=== PATIENT | female | born 2000 | race Caucasian/White ===

== ENCOUNTER 2020-03-04 14:09 | Observation (INO) | payer BC ==
[2020-03-04] MEDS ORDERED: SODIUM CHLORIDE 0.9% 1,000 ML IV STA (15:27)
--- NOTE | 2020-03-04 15:33 | ED ---
Neuro HPI <Benigno Hargrove - Last Filed: 03/04/20 16:39> - General Source: patient, RN notes reviewed, old records reviewed Mode of arrival: ambulatory Limitations: no limitations - History of Present Illness Is the patient presenting with stroke symptoms?: Yes Last Known Well Date: 03/04/20 Last Known Well Time: 12:59 Onset/Timin <Rin Fink - Last Filed: 03/04/20 16:55> - General Chief Complaint: Neuro Symptoms/Deficit Stated Complaint: R Arm Numbness Time Seen by Provider: 03/04/20 15:13 - History of Present Illness Initial Comments: 19-year-old female presents returns today with complaints of right arm weakness, mild headache and episode of blurred vision and reported slurred speech that started at 1:00 she was getting ready for work. Patient reports she called her boyfriend and her to the ER. Patient states she has mild headache at this time. She reports that her visual is improved. She states that she has main complaint of weakness in the right arm and tingling sensation. Patient states that she has no chest pain or shortness of breath. Denies palpitations. She does report feeling history of MS and brain tumors. She states that she's had no previous neurological her past medical history. (Rin Fink) - Related Data Allergies/Adverse Reactions: Allergies Allergy/AdvReac Type Severity Reaction Status Date / Time Sulfa (Sulfonamide Allergy Rash/Hives Verified 03/04/20 14:24 Antibiotics) topiramate [From Topamax] AdvReac Unknown Verified 03/04/20 14:24 Review of Systems ROS Other: All systems not noted in ROS Statement are negative. <Benigno Hargrove - Last Filed: 03/04/20 16:39> ROS Other: All systems not noted in ROS Statement are negative. <Rin Fink - Last Filed: 03/04/20 16:55> ROS Statement: Those systems with pertinent positive or pertinent negative responses have been documented in the HPI. General Exam Limitations: no limitations General appearance: alert, in no apparent distress Head exam: Present: atraumatic, normocephalic, normal inspection Eye exam: Present: normal appearance, PERRL, EOMI. Absent: scleral icterus, conjunctival injection, periorbital swelling ENT exam: Present: normal exam, mucous membranes moist Neck exam: Present: normal inspection. Absent: tenderness, meningismus, lymphadenopathy Respiratory exam: Present: normal lung sounds bilaterally Cardiovascular Exam: Present: regular rate, normal rhythm, normal heart sounds. Absent: systolic murmur, diastolic murmur, rubs, gallop, clicks GI/Abdominal exam: Present: soft, normal bowel sounds. Absent: distended, tenderness, guarding, rebound, rigid Right Upper Arm exam: Present: normal inspection, full ROM Elbow exam: Present: normal inspection, full ROM Forearm Wrist exam: Present: normal inspection, full ROM Hand Wrist exam: Present: normal inspection. Absent: full ROM Neurological exam: Present: alert, oriented X3 Expanded Patient oriented to: Present: person, place, time Speech: Present: fluid speech Cranial nerves: EOM's Intact: Normal, Facial Sensation: Normal Cerebellar function: Finger to Nose: Normal Upper motor neuron: Bryan Neglect: Normal, Pronator Drift: Abnormal Right, Babinski Sign: Normal, Sensory Extinction: Normal Sensory exam: Upper Extremity Light Touch: Abnormal Right, Normal (Patient re ports diminished sensation to light touch from fingertips to upper arm.), Lower Extremity Light Touch: Normal Motor strength exam: RUE: 3 (Is able do some president and ceo on the right but did have positive pronator drift), LUE: 5, RLE: 5, LLE: 5 Eye Response: (4) open spontaneously Motor Response: (6) obeys commands Verbal Response: (5) oriented Ney Total: 15 Psychiatric exam: Present: normal affect, normal mood Skin exam: Present: warm, dry, intact, normal color. Absent: rash <Rin Fink - Last Filed: 03/04/20 16:55> - General Exam Comments Initial Comments: 19-year-old female. Alert and oriented 3. (iRn Fink) Stroke MDM - Lab Data Result diagrams: 03/04/20 15:39 03/04/20 15:39 <Benigno Hargrove - Last Filed: 03/04/20 16:39> - Lab Data Result diagrams: 03/04/20 15:39 03/04/20 15:39 - EKG Data -: EKG Interpreted by Me EKG shows normal: sinus rhythm <Rin Fink - Last Filed: 09/28/20 16:55> - Lab Data Lab Results 03/04/20 03/04/20 03/04/20 Range/Units 15:35 15:39 15:39 WBC 10.1 (4.0-11.0) k/uL RBC 4.81 (3.80-5.40) m/uL Hgb 14.1 (11.4-16.0) gm/dL Hct 44.3 (34.0-46.0) % MCV 92.2 (80.0-100.0) fL MCH 29.4 (25.0-35.0) pg MCHC 31.9 (31.0-37.0) g/dL RDW 12.7 (11.5-15.5) % Plt Count 280 (150-450) k/uL Neutrophils % 66 % Lymphocytes % 24 % Monocytes % 5 % Eosinophils % 2 % Basophils % 1 % Neutrophils # 6.7 (1.3-7.7) k/uL Lymphocytes # 2.5 (1.0-4.8) k/uL Monocytes # 0.5 (0-1.0) k/uL Eosinophils # 0.2 (0-0.7) k/uL Basophils # 0.1 (0-0.2) k/uL PT 10.6 (9.0-12.0) sec INR 1.0 (<1.2) APTT 23.6 (22.0-30.0) sec Sodium (137-145) mmol/L Potassium (3.5-5.1) mmol/L Chloride (98-107) mmol/L Carbon Dioxide (22-30) mmol/L Anion Gap mmol/L BUN (7-17) mg/dL Creatinine (0.52-1.04) mg/dL Est GFR (CKD-EPI)AfAm (>60 ml/min/1.73 sqM) Est GFR (CKD-EPI)NonAf (>60 ml/min/1.73 sqM) Glucose (74-99) mg/dL POC Glucose (mg/dL) 79 (75-99) mg/dL POC Glu Customer Records Division Supervisor ID Stephan Torrez Calcium (8.4-10.2) mg/dL Total Bilirubin (0.2-1.3) mg/dL AST (14-36) U/L ALT (4-34) U/L Alkaline Phosphatase (38-126) U/L Troponin I (0.000-0.034) ng/mL Total Protein (6.3-8.2) g/dL Albumin (3.5-5.0) g/dL Urine Color Urine Appearance (Clear) Urine pH (5.0-8.0) Ur Specific [place] (1.001-1.035) Urine Protein (Negative) Urine Glucose (UA) (Negative) Urine Ketones (Negative) Urine Blood (Negative) Urine Nitrite (Negative) Urine Bilirubin (Negative) Urine Urobilinogen (<2.0) mg/dL Ur Leukocyte Esterase (Negative) Urine RBC (0-5) /hpf Urine WBC (0-5) /hpf Ur Squamous Epith Cells (0-4) /hpf Hyaline Casts (0-2) /lpf Urine Mucus (None) /hpf Urine Opiates Screen (NotDetected) Ur Oxycodone Screen (NotDetected) Urine Methadone Screen (NotDetected) Ur Propoxyphene Screen (NotDetected) Ur Barbiturates Screen (NotDetected) U Tricyclic Antidepress (NotDetected) Ur Phencyclidine Scrn (NotDetected) Ur Amphetamines Screen (NotDetected) U Methamphetamines Scrn (NotDetected) U Benzodiazepines Scrn (NotDetected) Urine Cocaine Screen (NotDetected) U Marijuana (THC) Screen (NotDetected) 03/04/20 03/04/20 03/04/20 Range/Units 15:39 15:39 16:23 WBC (4.0-11.0) k/uL RBC (3.80-5.40) m/uL Hgb (11.4-16.0) gm/dL Hct (34.0-46.0) % MCV (80.0-100.0) fL MCH (25.0-35.0) pg MCHC (31.0-37.0) g/dL RDW (11.5-15.5) % Plt Count (150-450) k/uL Neutrophils % % Lymphocytes % % Monocytes % % Eosinophils % % Basophils % % Neutrophils # (1.3-7.7) k/uL Lymphocytes # (1.0-4.8) k/uL Monocytes # (0-1.0) k/uL Eosinophils # (0-0.7) k/uL Basophils # (0-0.2) k/uL PT (9.0-12.0) sec INR (<1.2) APTT (22.0-30.0) sec Sodium 138 (137-145) mmol/L Potassium 3.9 (3.5-5.1) mmol/L Chloride 108 H (98-107) mmol/L Carbon Dioxide 21 L (22-30) mmol/L Anion Gap 9 mmol/L BUN 12 (7-17) mg/dL Creatinine 0.55 (0.52-1.04) mg/dL Est GFR (CKD-EPI)AfAm >90 (>60 ml/min/1.73 sqM) Est GFR (CKD-EPI)NonAf >90 (>60 ml/min/1.73 sqM) Glucose 81 (74-99) mg/dL POC Glucose (mg/dL) (75-99) mg/dL POC Glu Customer Records Division Supervisor ID Calcium 9.6 (8.4-10.2) mg/dL Total Bilirubin 0.4 (0.2-1.3) mg/dL AST 26 (14-36) U/L ALT 19 (4-34) U/L Alkaline Phosphatase 112 (38-126) U/L Troponin I <0.012 (0.000-0.034) ng/mL Total Protein 7.5 (6.3-8.2) g/dL Albumin 4.8 (3.5-5.0) g/dL Urine Color Light Yellow Urine Appearance Clear (Clear) Urine pH 6.5 (5.0-8.0) Ur Specific [place] 1.036 H (1.001-1.035) Urine Protein Negative (Negative) Urine Glucose (UA) Negative (Negative) Urine Ketones 1+ H (Negative) Urine Blood Negative (Negative) Urine Nitrite Negative (Negative) Urine Bilirubin Negative (Negative) Urine Urobilinogen <2.0 (<2.0) mg/dL Ur Leukocyte Esterase Small H (Negative) Urine RBC 1 (0-5) /hpf Urine WBC 2 (0-5) /hpf Ur Squamous Epith Cells 1 (0-4) /hpf Hyaline Casts 1 (0-2) /lpf Urine Mucus Rare H (None) /hpf Urine Opiates Screen Not Detected (NotDetected) Ur Oxycodone Screen Not Detected (NotDetected) Urine Methadone Screen Not Detected (NotDetected) Ur Propoxyphene Screen Not Detected (NotDetected) Ur Barbiturates Screen Not Detected (NotDetected) U Tricyclic Antidepress Not Detected (NotDetected) Ur Phencyclidine Scrn Not Detected (NotDetected) Ur Amphetamines Screen Not Detected (NotDetected) U Methamphetamines Scrn Not Detected (NotDetected) U Benzodiazepines Scrn Not Detected (NotDetected) Urine Cocaine Screen Not Detected (NotDetected) U Marijuana (THC) Screen Not Detected (NotDetected) - Medical Decision Making 19-year-old female presents emergency room today at onset 1:00 of a mild headache complaint of right arm weakness, slurred speech and blurred vision. She complained of a 2 out of 10 headache. Patient has no significant past medical history. On exam when she rests emergency department she did have some right arm drift and reports diminished and station the right arm. Code stroke was initiated and evaluated by Dr. Hargrove. Patient had CT brain with and without contrast. There is no evidence of any tumor or mass effect or strokes. When Mateo law was in emergency department she states that she's not surgery green strength of her right hand but still complains of diminished sensation. Asians case was discussed with Dr. Hernandez from neurointerventionalist, recommends against TPA. And Patient was admitted this time for local neurology evaluation. Discussed the case with Dr. Shetty who agrees for admission. Consults to neurology. CT shows no significant stenosis or aneurysmal change of the internal common carotid arteries. No stenosis or Aneurysm Changes Cir., [place]. No acute cardio pulmonary process. Acute intracranial hemorrhage or midline shift is seen. (Rin Fink) 03/04/20 16:27 EKG performed at 1331 showed normal sinus rhythm with sinus arrhythmia. Normal EKG. Ventricular rate of 67 bpm. Pulse 132 ms. QS ration is 98 ms. QT QTc is 412/435 ms. (Rin Fink) Past Medical History Additional Past Medical History / Comment(s): migraines History of Any Multi-Drug Resistant Organisms: None Reported Past Surgical History: Tonsillectomy Smoking Status: Never smoker Past Alcohol Use History: None Reported Past Drug Use History: None Reported <Rin Fink - Last Filed: 03/04/20 16:55> Course <DelvinBenigno - Last Filed: 03/04/20 16:39> <Rin Fink - Last Filed: 03/04/20 16:55> Vital Signs 03/04/20 03/04/20 03/04/20 14:20 15:00 15:37 Temperature 97.9 F 98.5 F 98.5 F Pulse Rate 76 74 68 Respiratory 18 16 16 Rate Blood Pressure 126/83 127/77 O2 Sat by Pulse 100 100 99 Oximetry 03/04/20 03/04/20 03/04/20 15:40 15:42 15:45 Temperature 98.5 F 98.5 F Pulse Rate 78 74 70 Respiratory 16 16 16 Rate Blood Pressure 127/77 127/77 110/66 O2 Sat by Pulse 100 100 100 Oximetry 03/04/20 03/04/20 03/04/20 15:54 16:00 16:15 Temperature 98.5 F 98.5 F Pulse Rate 72 70 73 Respiratory 18 16 16 Rate Blood Pressure 119/66 119/66 120/75 O2 Sat by Pulse 100 100 99 Oximetry 03/04/20 16:30 Temperature 98.5 F Pulse Rate 73 Respiratory 16 Rate Blood Pressure 132/78 O2 Sat by Pulse 100 Oximetry - Reevaluation(s) Reevaluation #1: 03/04/20 16:28 Patient reevaluate stating that she still has diminished sensation in the right hand but doesn't increasing president and ceo strength and range of motion. (Rin Fink) Reevaluation #2: 03/04/20 16:39 PA supervision: I proceeded [id number] evaluation the patient. She did present initially with complaints of numbness to the right upper extremity. She is right arm/right hand dominant. It happened was she was driving to work. Upon my evaluation she demonstrated weakness to the right upper extremity with difficulty with over, gravity and decreased president and ceo strength. Numbness extending from the tip of the fingers up to the shoulder. No other physical findings however. CAT scan was negative with respective plane brain and CT angios. I did discuss case with Dr. Melgar. Patient be admitted to this facility with neurological evaluation. Case discussed with [facility]. (Benigno Hargrove) Disposition <Benigno Hargrove - Last Filed: 03/04/20 16:39> Is patient prescribed a controlled substance at d/c from ED?: No Time of Disposition: 16:52 <Rin Fink - Last Filed: 03/04/20 16:55> Clinical Impression: Right arm weakness, TIA (transient ischemic attack) Disposition: ADMITTED IP TO THIS HOSP Condition: Good Referrals: Randal Dykes MD [Primary Care Provider] - 1-2 days
[2020-03-04 15:38] LABS: Glucose,Whole Blood 79 mg/dL (75-99)
[2020-03-04 15:48] LABS: Basophils # (A) 0.1 k/uL (0-0.2); Basophils % (A) 1 %; Eosinophils # (A) 0.2 k/uL (0-0.7); Eosinophils % (A) 2 %; HCT 44.3 % (34.0-46.0); HGB 14.1 gm/dL (11.4-16.0); Lymphocytes # (A) 2.5 k/uL (1.0-4.8); Lymphocytes % (A) 24 %; MCH 29.4 pg (25.0-35.0); MCHC 31.9 g/dL (31.0-37.0); MCV 92.2 fL (80.0-100.0); Mean Platelet Volume 7.7; Monocytes # (A) 0.5 k/uL (0-1.0); Monocytes % (A) 5 %; Neutrophils # (A) 6.7 k/uL (1.3-7.7); Neutrophils % (A) 66 %; Platelet Count 280 k/uL (150-450); RBC 4.81 m/uL (3.80-5.40); RDW 12.7 % (11.5-15.5); WBC 10.1 k/uL (4.0-11.0)
--- NOTE | 2020-03-04 15:55 | CT ---
EXAMINATION TYPE: CT brain wo con for TPA DATE OF EXAM: 03/04/2020 COMPARISON: None. HISTORY: Right sided weakness, , acute onset. Code stroke. CT DLP: 1098.8 mGycm. Automated Exposure Control for Dose Reduction was Utilized. TECHNIQUE: CT scan of the head is performed without contrast. FINDINGS: There is no acute intracranial hemorrhage, mass effect, or midline shift identified. The ventricles and sulci are within normal limits in size. Andujar-white matter differentiation is maintai jackie. The globes are intact and the visualized sinuses are clear. IMPRESSION: No acute intracranial hemorrhage or midline shift is seen.
--- NOTE | 2020-03-04 15:56 | XR ---
EXAMINATION TYPE: XR chest 2V DATE OF EXAM: 03/04/2020 COMPARISON: NONE HISTORY: Right arm numbness and weakness. TECHNIQUE: Frontal and lateral views of the chest are obtained. FINDINGS: There is no focal air space opacity, pleural effusion, or pneumothorax seen. The cardiac silhouette size is within normal limits. The osseous structures are intact. Overlying bilateral met allic nipple ornaments are incidentally noted. IMPRESSION: No acute cardiopulmonary process.
[2020-03-04 16:00] LABS: ALT 19 U/L (4-34); AST 26 U/L (14-36); African American GFR (CKD) >90 (>60 ml/min/1.73 sqM); Albumin 4.8 g/dL (3.5-5.0); Alkaline Phosphatase 112 U/L (38-126); Anion Gap 9 mmol/L; Blood Urea Nitrogen 12 mg/dL (7-17); Calcium 9.6 mg/dL (8.4-10.2); Carbon Dioxide 21 mmol/L (22-30); Chloride 108 mmol/L (98-107); Glucose 81 mg/dL (74-99); Non-African American GFR(CKD) >90 (>60 ml/min/1.73 sqM); Potassium 3.9 mmol/L (3.5-5.1); Sodium 138 mmol/L (137-145); Total Bilirubin 0.4 mg/dL (0.2-1.3); Total Protein 7.5 g/dL (6.3-8.2)
[2020-03-04 16:01] LABS: Partial Thromboplastin Time 23.6 sec (22.0-30.0); Prothrombin Time 10.6 sec (9.0-12.0)
--- NOTE | 2020-03-04 16:11 | CT ---
EXAMINATION TYPE: CT angio head neck DATE OF EXAM: 03/04/2020 HISTORY: Right sided weakness. COMPARISON: NONE CT DLP: 478.4 mGycm. Automated Exposure Control for Dose Reduction was Utilized. TECHNIQUE: CTA scan of the head and neck are performed with IV Contrast, patient injected with 65 mL of Isovue 370, axial images are obtained, coronal and sagittal reformatted images are reviewed. Thre e-D reconstructed images are created on an independent workstation and reviewed. FINDINGS: Carotid/Vascular Structures: Normal three-vessel origin from aortic arch. Normal origin right common carotid artery from brachiocephalic artery. Minimal calcified plaque at its origin. No significant pl aque or stenosis in the common or internal carotid arteries bilaterally. Patent bilateral external ca rotid arteries without significant plaque or stenosis. Codominant vertebrobasilar system. Vertebral arteries are patent to the basilar junction. Patent bila teral posterior communicating arteries. No significant focal stenosis or aneurysmal change in the pos terior circulation. There is patent anterior communicating artery. There is no significant focal sten osis or aneurysmal change in the anterior circulation. Other: No significant findings seen. IMPRESSION: No significant stenosis or aneurysmal change in the internal or common carotid arteries bilaterally. No significant stenosis or aneurysmal change at the level of hopi of [place].
[2020-03-04 16:33] LABS: Appearance,Urine Clear (Clear); Bilirubin,Urine Negative (Negative); Blood,Urine Negative (Negative); Color,Urine Light Yellow; Glucose,Urine (UA) Negative (Negative); Hyaline Casts,Urine 1 /lpf (0-2); Ketones,Urine 1+ (Negative); Leukocyte Esterase,Urine Small (Negative); Mucus,Urine Rare /hpf; Nitrite,Urine Negative (Negative); PH, Urine 6.5 (5.0-8.0); Protein,Urine Negative (Negative); RBC,Urine 1 /hpf (0-5); Specific Gravity,Urine 1.036 (1.001-1.035); Squamous Epithelial Cell,Urine 1 /hpf (0-4); Urobilinogen,Urine <2.0 mg/dL (<2.0); WBC,Urine 2 /hpf (0-5)
[2020-03-04 16:43] LABS: Amphetamine Screen,Urine Not Detected (NotDetected); Barbiturate Screen,Urine Not Detected (NotDetected); Benzodiazepines Screen,Urine Not Detected (NotDetected); Cocaine Screen,Urine Not Detected (NotDetected); Methadone Screen, Urine Not Detected (NotDetected); Opiate Screen,Urine Not Detected (NotDetected); Oxycodone Screen, Urine Not Detected (NotDetected); Phencyclidine Screen,Urine Not Detected (NotDetected); Tricyclic Antidepressant,Urine Not Detected (NotDetected); Urn Cannabinoid Scrn Not Detected (NotDetected)
[2020-03-04] MEDS ORDERED: ASPIRIN 325 MG TAB PO STA (16:56)
[2020-03-04] MEDS ORDERED: ACETAMINOPHEN TAB 325 MG TAB PO PRN (16:56)
[2020-03-04] MEDS: SODIUM CHLORIDE 0.9% 1,000 ML IV SCH (17:30)
--- NOTE | 2020-03-04 18:42 | MR ---
EXAMINATION TYPE: MR brain wo/w con DATE OF EXAM: 03/04/2020 COMPARISON: None HISTORY: RT ARM NUMBNESS CONTRAST: Standard multiplanar, multisequence MRI departmental protocol utilizing 7 mL intravenous Gadavist patricio olinium contrast. Ventricles and sulci appear normal. There is no mass effect nor midline shift. There is no evidence o f intracranial hemorrhage. Diffusion images show no evidence of an acute infarct. The bhatt-white tory er structures have normal signal pattern. There is no evidence of cerebral edema. Brainstem is intact . The internal auditory canals appear normal. There is no evidence of orbital mass. Sella turcica susan ears normal. Corpus callosum appears normal. Contrast images show no pathologic enhancement. There is normal enhancement of the venous sinuses. There is no evidence of cerebral edema. IMPRESSION: Normal MR scan of the brain.
[2020-03-04] MEDS ORDERED: HYDROcodone/APAP 5-325MG 1 EACH TAB PO PRN (20:37)
[2020-03-04] MEDS ORDERED: ALPRAZolam 0.25 MG TAB PO PRN (20:37)
[2020-03-04] MEDS: HEPARIN SODIUM,PORCINE 5,000 UNIT/ML 1 ML VIAL SQ SCH (21:03)
--- NOTE | 2020-03-05 01:31 | HP ---
HISTORY AND PHYSICAL CHIEF COMPLAINT: Weakness of the right side. HISTORY OF PRESENT ILLNESS: This 19-year-old woman with a past medical history of migraines, sponge kidneys, kidney stones and anxiety, depression, being followed by Dr. Randal Dykes in the outpatient setting noted to have right arm weakness and mild headaches and eye pressure on the left side. The patient had some blurred vision, also. The patient had some slurred speech, started at 1 o'clock and subsequently patient was getting ready for work. The patient called her boyfriend and the patient came to the ER but subsequently patient is improved and the patient also had significant weakness also improved on the right side, also some minimal facial deviation on the right side is noted and the patient is admitted for further evaluation and treatment. The patient is apparently not a candidate for tPA and CT angiography and brain CT was also within normal limits and brain MRI was also done in the ER which showed normal findings. There is no history of fever, rigors or chills. No history of headache, no history of any seizures at this time. PAST MEDICAL HISTORY: Migraines, sponge kidneys, history anxiety depression. MEDICATIONS: Fluoxetine 20 mg p.o. daily. ALLERGIES: SULFA AND TOPAMAX. FAMILY HISTORY: History of AVM, brain tumor. SOCIAL HISTORY: No history of smoking. No history of alcohol intake. No history of substance abuse. REVIEW OF SYSTEMS: ENT as mentioned earlier. CARDIOVASCULAR: No angina or palpitations. RESPIRATION: No cough. GI no nausea or vomiting. : No dysuria. NERVOUS SYSTEM: As mentioned earlier. ALLERGY/IMMUNOLOGY: No asthma or hayfever. MUSCULOSKELETAL: As mentioned earlier. HEMATOLOGY: No history anemia. ENDOCRINE: No history of diabetes or hypothyroidism. CONSTITUTIONAL: As mentioned earlier. DERMATOLOGY negative. RHEUMATOLOGY: Negative. PSYCHIATRIC: As mentioned earlier. PHYSICAL EXAMINATION: Alert and oriented x3. Pulse is 89, blood pressure 166/68, respiration 16, temperature 97.7, pulse ox 100 percent on room air. HEENT: Conjunctivae normal. NECK: No JVD. CARDIOVASCULAR: S1, S2 muffled. RESPIRATION: Breath sounds diminished in the bases. No rhonchi. No crackles. ABDOMEN: Soft. Nontender. No mass palpable. LEGS no edema. No swelling. NERVOUS SYSTEM: Higher functions as mentioned earlier. Minimal facial deviation present. Minimal weakness of the right upper limb also present. No sensory abnormality. Reflexes are diminished. SKIN no ulcers. No rashes. No bleeding. JOINTS: No active deforming arthropathy. The gait is normal. LYMPHATICS: No lymph nodes palpable in the neck, axillae or groin. LABS: CBC within normal limits and CO2 is 21, otherwise UA is unremarkable. ASSESSMENT: 1. 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 2. History of migraine. 3. Rule out AVM. 4. Sponge kidneys. 5. History of nephrolithiasis. 6. History of anxiety, depression. RECOMMENDATIONS AND DISCUSSION: This 19-year-old woman who presented with multiple complex medical issues, we will monitor the patient closely. Continue the current medications, management and symptomatic treatment. Otherwise, at this time the I would recommend neurology evaluation. Antiplatelet agents. Otherwise, DVT prophylaxis. Symptomatic treatment. Prognosis guarded because of multiple complex medical conditions. A copy of this dictation being forwarded to Dr. Dykes who is the primary physician. MMODL / IJN: [id number] /
[2020-03-05] MEDS: SODIUM CHLORIDE 0.9% 1,000 ML IV SCH ×2 (05:58→20:46)
[2020-03-05] MEDS: HEPARIN SODIUM,PORCINE 5,000 UNIT/ML 1 ML VIAL SQ SCH ×2 (08:35→20:47)
[2020-03-05] MEDS: FLUoxetine HCL 20 MG CAP PO SCH (08:35)
[2020-03-05 08:46] LABS: Cholesterol 138 mg/dL (<200); HDL Cholesterol 52 mg/dL (40-60); LDL Cholesterol,Calculated 72 mg/dL (0-99); Triglycerides 69 mg/dL (<150)
[2020-03-05] MEDS ORDERED: ASPIRIN 325 MG TAB PO SCH (09:00)
[2020-03-05 09:29] LABS: C Reactive Protein <5.0 mg/L (<10.0)
--- NOTE | 2020-03-05 10:37 | P.CNNES ---
History of Present Illness Consult date: 03/05/20 Requesting physician: Rin Fink Reason for Consult: Transient ischemic attack for right arm weakness History of Present Illness: This is a 19-year-old right-handed female with history of headaches, anxiety and depression that presented to the emergency department on 03/04/2020 with complaint of right arm weakness, blurred vision and slurred speech. Her episode started at 1 PM on 03/04/2020 while was getting ready to work. All of the suddent she had those symptoms stated above. Also she had slurring of her spe ech and numbness and tingling of entire right upper extremity. Then she said about one hour later she noticed that she has pressure behind both eyes left more than the right. The pressure were mild to moderate in severity according to her. There is no radiation. She felt like she was having black spots that she seeing out of both eyes. She did the have photophobia but no phonophobia. She didn't have any nausea any vomiting. She didn't have to be in a dark quiet place. Symptoms of slurring of speech has resolved within the 45 minutes. But says she continued to have some mild weakness of the right upper extremity until activity early in the morning as she felt that there was an improvement in her right upper extremity she said that the there is some minimal weakness compared to the left but much improved that. Otherwise her pressure behind the eyes are improved. She doesn't have any further symptoms other than this minimal weakness of the right hand. She denies of the any fever or any cough. Denies of any neck pain. She denies any habits history of seizures. She denies any similar presentation the past like this before. Patient doesn't have any pain with moving of the eyes. Doesn't have any redness of the eyes or any tearing. Doesn't have any sick contacts recently. Regarding the patient's headache she does not have history of migraine aura a diagnosis of migraine. She said that about 5 years ago she started having bilateral occipital headaches they are aching, and felt the headaches were 10 over 10 and they radiate to the frontal area. She did have nausea vomiting with those. Also she had photophobia but no phonophobia. The headaches would last couple days and that she would use [id number] Tylenol. Get a headache about once a week. The last headache she had like this was about 2 years ago. Patient denies tobacco use or any illicit drug use. The she is not on any contraceptive. She is not under any pressure and anxiety recently. Patient has a sister who has multiple sclerosis at the age of 18. Her father has a brain tumor and his mid 30s. Workup in the ED consisted of: Initial vital signs was blood pressure of 126/83, heart rate of 76, respiratory of 18, temperature of 97.9 Fahrenheit oral, pulse ox of [address] of the head was done and was reported as no acute intracranial hemorrhage or midline shift is seen. I personally reviewed it and I don't see any acute ischemia or hemorrhage. Also I don't see any encephalomalacia or any mass effect on the CT of the head. CT angiogram of the head and neck was reported as no significant stenosis or aneurysm change in the internal or common carotid arteries bilaterally. No significant stenosis or aneurysm changes at the level [place]. In the emergency department a stroke pager was activated. Patient was not given IV TPA since her NIH was low. EKG was reported as normal sinus rhythm with sinus arrhythmia. The ventricular rate was 67. Normal EKG. MRI the brainw/ and w/o was done and was reported as abnormal MRI scan of the brain. I personally reviewed it and I don't see any ischemia or any enhancement on MRI. Review of Systems Review of system: The 12 point system was reviewed and apparent positive and negative per HPI. Past Medical History Additional Past Medical History / Comment(s): migraines, spongy kidneys, kidney stones History of Any Multi-Drug Resistant Organisms: None Reported Past Surgical History: Tonsillectomy Additional Past Anesthesia/Blood Transfusion Reaction / Comment(s): slow to come out Past Psychological History: Anxiety, Depression Smoking Status: Never smoker Past Alcohol Use History: None Reported Past Drug Use History: None Reported - Past Family History Father Additional Family Medical History / Comment(s): AVM, brain tumors Mother Additional Family Medical History / Comment(s): gestational diabetes Medications and Allergies Home Medications Medication Instructions Recorded Confirmed Type FLUoxetine HCL [PROzac] 20 mg PO DAILY 03/04/20 03/04/20 History Allergies Allergy/AdvReac Type Severity Reaction Status Date / Time Sulfa (Sulfonamide Allergy Rash/Hives Verified 03/04/20 17:01 Antibiotics) topiramate [From Topamax] AdvReac "Body Verified 03/04/20 17:01 Locks Up" Physical Examination - Vital Signs Vital Signs: Vital Signs Temp Pulse Pulse Resp BP BP Pulse Ox 03/05/20 04:00 97.9 F 64 18 121/60 97 03/05/20 00:00 98.5 F 88 16 112/48 03/04/20 20:30 97.7 F 89 16 163/68 03/04/20 16:30 98.5 F 73 16 132/78 100 03/04/20 16:15 98.5 F 73 16 120/75 99 03/04/20 16:00 98.5 F 70 16 119/66 100 03/04/20 15:54 72 18 119/66 100 03/04/20 15:45 98.5 F 70 16 110/66 100 03/04/20 15:42 98.5 F 74 16 127/77 100 03/04/20 15:40 78 16 127/77 100 03/04/20 15:37 98.5 F 68 16 99 03/04/20 15:00 98.5 F 74 16 127/77 100 03/04/20 14:20 97.9 F 76 18 126/83 100 Intake and Output 03/04/20 03/05/20 03/05/20 22:59 06:59 14:59 Other: Voiding Method Toilet Weight 72.575 kg 77 kg GENERAL: The patient is lying in bed and is not in acute distress. CHEST: The heart rate is regular rate rhythm. No murmurs to auscultation. LUNG: Clear to auscultation bilaterally no wheezing noted throughout. Not lab ored breathing. ABDOMEN/GI: Bowel sounds present in all 4 quadrants. No tenderness to palpation throughout. NEUROLOGICAL: Higher mental function: The patient is awake, alert, oriented to self, place and time. Patient is following commands. No aphasia and no neglect. Cranial nerves: The pupils are round, equal and reactive to light and accommodation. Visual bragg are full to confrontation throughout. Extraocular movement is intact no nystagmus is noted. Facial sensation is normal to touch throughout. The facial strength is normal throughout. Hearing is normal bilaterally to hand rub. Tongue is midline and moved [id number] without any difficulty. No dysarthria is noted. Shoulder shrug is normal bilaterally. Motor: Gait is normal. The strength is 5- on right hand program evaluation consultant and forearm extensor but felt there is some effort related. Otherwise 5 over 5 throughout. Normal tone and bulk. Cerebellum: Normal finger to nose bilaterally. Sensation: Sensation is normal to touch throughout. Reflexes (right/left): 2+ throughout except patellar 3+ bilaterally. Plantars are downgoing bilaterally. Results Coagulation study: PT 10.6, INR 1.0, PTT of 23.6. UA the leukocyte esterase was small the nitrate was negative the urine white blood cell was 2. Urine drug screen nothing was detected - Laboratory Findings CBC and BMP: 03/04/20 15:39 03/04/20 15:39 Abnormal Lab Findings: Abnormal Labs 03/04/20 03/04/20 15:39 16:23 Chloride 108 H Carbon Dioxide 21 L Ur Specific [place] 1.036 H Urine Ketones 1+ H Ur Leukocyte Esterase Small H Urine Mucus Rare H Assessment and Plan Assessment: Episode of right hand weakness numbness and tingling, slurring of the speech and retro-orbital pain bilaterally: This seems to be migraine with aura. Another differential is TIA. Hx of Migraine Anxiety Plan: I'll get MRV of the head as well as MRI of the C-spine. 2-D echo is pending. Primary team consulted cardiology for possible VALERIE. Lipid panel is pending Currently the patient is on aspirin 325 daily--I will decrease it to 81 mg daily.. So the patient on Lipitor 20 mg daily. Ordered TSH and HbA1c. PT OT and speech therapy are consulted. Cardiac monitoring. The plan was discussed with the patient. Thank you for the consult. Brian Martinez M.D. Neuro-hospitalist Time with Patient: Greater than 30
--- NOTE | 2020-03-05 11:47 | ECHOF ---
Referral Reason:Stroke MEASUREMENTS -------- HEIGHT: 157.5 cm WEIGHT: 76.7 kg BP: RVIDd: 2.6 cm (< 3.3) IVSd: 1.0 cm (0.6 - 1.1) LVIDd: 4.5 cm (3.9 - 5.3) LVPWd: 1.1 cm (0.6 - 1.1) IVSs: 1.2 cm LVIDs: 3.0 cm LVPWs: 1.6 cm LA Diam: 3.4 cm (2.7 - 3.8) Ao Diam: 2.5 cm (2.0 - 3.7) AV Cusp: 2.1 cm (1.5 - 2.6) LA Diam: 3.5 cm (2.7 - 3.8) MV EXCURSION: 13.817 mm (> 18.000) MV EF SLOPE: 91 mm/s (70 - 150) EPSS: 0.5 cm MV E Braden: 0.92 m/s MV DecT: 162 ms MV A Braden: 0.58 m/s MV E/A Ratio: 1.58 RAP: 5.00 mmHg RVSP: 31.19 mmHg FINDINGS -------- Sinus rhythm. This was a technically good study. LV size, wall thickness and systolic function are normal, with an EF greater than 55%. The left sukhdeep tricular size is normal. The right ventricle is normal in size. The left atrial size is normal. Normal LA size by volume 22+/-6 ml/m2. The right atrial size is normal. Bubble study done to R/0 Shunt. The aortic valve is trileaflet, and appears structurally normal. No aortic stenosis or regurgitation. Mild mitral regurgitation is present. Mild tricuspid regurgitation present. Right ventricular systolic pressure is normal at < 35 mmHg. There is no pulmonic regurgitation present. There is no pericardial effusion. CONCLUSIONS -------- 1. LV size, wall thickness and systolic function are normal, with an EF greater than 55%. 2. The left ventricular size is normal. 3. The right ventricle is normal in size. 4. The left atrial size is normal. 5. Normal LA size by volume 22+/-6 ml/m2. 6. The right atrial size is normal. 7. Bubble study done to R/0 Shunt. No shunt noted 8. Mild mitral regurgitation is present. 9. Mild tricuspid regurgitation present. 10. There is no pulmonic regurgitation present. 11. There is no pericardial effusion. 12. consider VALERIE if indicated ELECTRIC SPOT WELDER: Meliza Basilio RDCS
--- NOTE | 2020-03-05 12:11 | CONS ---
CONSULTATION Mrs. Fowler is a 19-year-old female who is followed by Dr. Dykes, had a prior history of migraine who presented yesterday with an episode of tingling in her right hand, subsequently weakness and speech disturbance. Tingling is almost resolved this morning. She has no prior cardiac history. She is active physically. Denies any chest pain. No dizziness or palpitation. No syncope. No PND, orthopnea, or peripheral edema. In the emergency room, she had a brain MRI that was normal. Her CT carotid angiogram revealed no evidence of obstructive disease and she has been in sinus mechanism. She did not have significant headaches yesterday. She has some pressure behind her eyes. She takes Prozac at home. Coronary risk factors and negative for smoking. She is nondiabetic. No history of documented hyperlipidemia. REVIEW OF SYSTEMS: RESPIRATORY system: No documented history of asthma, emphysema or bronchitis. GI system: No recent GI bleeding. No peptic ulcer disease. system: No dysuria or hematuria. Nervous system: No stroke or seizure. PHYSICAL EXAMINATION: She is a 19-year-old female, alert, oriented, no apparent distress. Blood pressure 114/50 with a heart rate in the 60s. HEAD: Normocephalic. EYES: Sclerae anicteric. NECK: Good carotid upstroke. No bruit. No jugular venous distention. LUNGS: Clear to auscultation. HEART: Regular rate and rhythm S1, S2. No S3. No S4. No murmur or rub. ABDOMEN: Soft, nontender. Positive bowel sounds. No megaly. EXTREMITIES: No edema. Intact distal pulses. Homans sign is negative. LAB DATA: Revealed a cholesterol 138, LDL of 72. Troponin less than 0.012. BUN and creatinine 12 and 0.55. Hemoglobin of 14.1. EKG revealed a sinus mechanism with no acute changes. IMPRESSION: 1. Symptoms consistent with transient ischemic attack. No evidence of cardiac etiology. 2. Prior history of migraine. RECOMMENDATIONS: I will obtain an echocardiogram with Doppler with bubble study to rule out any shunting. If there is no shunting, then no further cardiac workup will be needed at this time. The patient may benefit from long-term monitoring. We will await the input of Neurology and depending on their recommendations, further plans will be made. Thank you for this consult. We will follow with you. MMODL / IJN: [id number] /
--- NOTE | 2020-03-05 20:52 | PN ---
PROGRESS NOTE DATE OF SERVICE: 03/05/2020 This 19-year-old woman who was admitted with weakness of the right side is being closely monitored at this time. No chest pain. No palpitations. No fever. Cardiac workup in progress. A 2D echo with Doppler showed ejection fraction about 55%. No shunt was noted and mild valvular abnormalities noted and MRV of the head as MRI cervical spine has been requested by Neurology, Dr. Martinez. No chest pain. No palpitation. No fever. PHYSICAL EXAMINATION: Alert and oriented x3. The pulse is 71, blood pressure 108/50. Respiration 16, temperature 98 degrees, pulse ox 98% on room air. HEENT: Conjunctivae normal. NECK: No JVD. CARDIOVASCULAR: S1, S2 muffled. RESPIRATIONS: Breath sounds diminished in the bases. No rhonchi. No crackles. ABDOMEN: Soft, nontender. LEGS: No edema. No swelling. Minimal weakness, much improved at this time. LABS: CBC within normal limits, otherwise other labs are noted and rheumatoid factor is pending and is negative. ASSESSMENT: 1. 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 2. History of migraine. 3. Rule out AVM. 4. Sponge kidneys. 5. History of nephrolithiasis. 6. History of anxiety, depression. RECOMMENDATIONS AND DISCUSSION: Recommend to continue current medications, management and symptomatic treatment. Otherwise, follow closely with neurology. Cardiology has seen the patient and recommended no further workup if there is no shunt in the 2D echo. The 2D echo was reported as showing no AV shunt. Otherwise, we will continue to monitor. Prognosis guarded because of multiple complex medical conditions. Further recommendations to follow. MMODL / IJN: [id number] /
[2020-03-05] MEDS ORDERED: ATORVASTATIN 20 MG TAB PO SCH (21:00)
[2020-03-05 21:20] LABS: Rheumatoid Factor, Qnt 7 IU/mL (0-15)
[2020-03-06 04:37] VITALS: RESP 16
[2020-03-06] MEDS: SODIUM CHLORIDE 0.9% 1,000 ML IV SCH (05:26)
[2020-03-06] MEDS ORDERED: ASPIRIN 81 MG PO SCH (09:00)
[2020-03-06] MEDS: HEPARIN SODIUM,PORCINE 5,000 UNIT/ML 1 ML VIAL SQ SCH (10:16)
[2020-03-06] MEDS: FLUoxetine HCL 20 MG CAP PO SCH (10:16)
[2020-03-06 10:28] VITALS: BP 119/57; PULSE 62; TEMP 98.7
--- NOTE | 2020-03-06 11:55 | PN ---
PROGRESS NOTE Mrs. Fowler is a 19-year-old female who presented with right upper extremity weakness and numbness with speech disturbance that has resolved. She is feeling well this morning. She is denying any chest pain, her breathing has been stable. She denies any dizziness, palpitation. She continues on aspirin 81 mg daily, Lipitor 20 mg daily. PHYSICAL EXAMINATION: Blood pressure 108/50 with a heart rate in the 60s. LUNGS: Clear. HEART: Regular rate and rhythm, S1, S2. No S3. No rub. ABDOMEN: Soft, nontender. EXTREMITIES: No edema. LAB DATA: She had an echocardiogram that revealed preserved ventricular size and systolic function with no evidence of shunting with bubble study. Her cholesterol is 138 with an LDL of 72. IMPRESSION: Cerebrovascular accident. No evidence to suggest cardiac etiology, no evidence of shunting by echocardiography and she is in sinus mechanism. RECOMMENDATION: From the cardiac standpoint, I see no indication for VALERIE at this time. The patient should be able to be discharged home from the cardiac standpoint. She will be followed as an outpatient for further evaluation for possible arrhythmia. MMODL / IJN: [id number] /
--- NOTE | 2020-03-06 13:46 | MR ---
EXAMINATION TYPE: MR venography head wo/w con DATE OF EXAM: 03/06/2020 COMPARISON: CTA brain 2 days ago. HISTORY: RT hand weakness. CONTRAST: Standard multiplanar, multisequence MRI departmental protocol utilizing 7.5 mL intravenous Gadavist g adolinium contrast. Exam was performed of the brain focusing on draining venous system. 2-D and 3-D reconstructed images created and a workstation and reviewed. FINDINGS: Poor visualization of the inferior sagittal sinus presumed small in caliber or hypoplastic. There is more prominent internal cerebral vein and vein of Chris draining into the straight sagittal sinus which is patent. There is a patent superior sagittal sinus. There is tortuous course to the tr ansverse and sigmoid sinuses bilaterally causing poor oral opacification. Patency is felt present. Fe w prominent arachnoid granulations are seen. There is good visualization of draining into the bilater al internal jugular veins. IMPRESSION: No convincing evidence for deep cerebral venous thrombosis.
--- NOTE | 2020-03-06 14:16 | MR ---
MRI CERVICAL SPINE: CLINICAL HISTORY: Right hand weakness, rule out multiple sclerosis. TECHNIQUE: Multiplanar, multisequence imaging of the cervical spine is performed without and with IV contrast, 7.5 cc of gadolinium was given intravenously. Demyelinating disease protocol. COMPARISON: CTA neck 2 days ago.. FINDINGS: Sagittal images of the cervical spine show the craniocervical junction to appear within nor mal limits. The cervical and upper thoracic spinal cord is normal in course, caliber, and signal. No suspicious T2 hyperintense plaques. Vertebral alignment is anatomic. The vertebral body and intrave rtebral disk heights are normal. The bone marrow signal intensity is within normal limits. No suspic ious postcontrast enhancement. Axial images show there is no significant focal disk disease, spinal canal stenosis, neural foraminal narrowing, or spinal cord compromise at any cervical level. IMPRESSION: Unremarkable study, no significant abnormality is seen to account for patient's clinical symptoms. No evidence for demyelinating disease involvement in the cervical spinal cord.
--- NOTE | 2020-03-06 14:48 | P.PN ---
Subjective Progress Note Date: 03/06/20 Patient states that that she's feeling better today compared to yesterday. That she denies any further headache, any pain behind the eyes. She denies of any further weakness or numbness. She feels like she is back to her baseline. She denies of any visual disturbance. Objective - Vital Signs Vital signs: Vital Signs Temp 98.7 F 03/06/20 10:00 Pulse 62 03/06/20 10:00 Resp 16 03/06/20 10:00 BP 119/57 03/06/20 10:00 Pulse Ox 96 03/06/20 10:00 Intake & Output 03/05/20 03/06/20 03/06/20 18:59 06:59 18:59 Intake Total 360 500 265 Balance 360 500 265 Weight 77.5 kg Intake: IV 500 Sodium Chloride 0.9% 1, 500 000 ml @ 100 mls/hr IV . Q10H ANUEL Rx#:[id number] Oral 360 265 Other: Voiding Method Toilet Toilet # Voids 1 1 - Exam GENERAL: The patient is lying in bed and is not in acute distress. CHEST: The heart rate is regular rate rhythm. No murmurs to auscultation. LUNG: Clear to auscultation bilaterally no wheezing noted throughout. Not labored breathing. ABDOMEN/GI: Bowel sounds present in all 4 quadrants. No tenderness to palpation throughout. NEUROLOGICAL: Higher mental function: The patient is awake, alert, oriented to self, place and time. Patient is following commands. No aphasia and no neglect. Cranial nerves: The pupils are round, equal and reactive to light and accommodation. Visual bragg are full to confrontation throughout. Extraocular movement is intact no nystagmus is noted. Facial sensation is normal to touch throughout. The facial strength is normal throughout. Hearing is normal bilaterally to hand rub. Tongue is midline and moved [id number] without any d ifficulty. No dysarthria is noted. Shoulder shrug is normal bilaterally. Motor: Gait is normal. The strength is 5 over 5 throughout. Normal tone and bulk. Cerebellum: Normal finger to nose bilaterally. Sensation: Sensation is normal to touch throughout. Reflexes (right/left): 2+ throughout except patellar 3+ bilaterally. Plantars are downgoing bilaterally. - Labs CBC & Chem 7: 03/04/20 15:39 03/04/20 15:39 Assessment and Plan Assessment: Migraine with aura (Episode of right hand weakness numbness and tingling, slurring of the speech and retro-orbital pain bilaterally) Hx of Migraine Anxiety Plan: MRV of the head: No evidence for deep venous thrombosis. MRI of the C-spine: Unremarkable study, no significant abnormality seen that to account for the patient symptoms. No evidence for demyelinating disease involvement in the cervical spinal cord. 2-D echo: Left ventricular thickness and systolic function are normal. Ejection fraction is 55%. Left atrial size is normal. Lipid panel: Triglyceride of 69, cholesterol 138, LDL was 72, HDL was 52. Currently the patient is on aspirin 325 daily--I will decrease it to 81 mg daily.. So the patient on Lipitor 20 mg daily. TSH: 2.23 and HbA1c: 5.0 PT OT and speech therapy are consulted. Cardiac monitoring. Patient needs to follow-up with a neurologist as an outpatient. She was notified if she has any further episodes like this especially with eye pain weakness numbness is present with a family history of multiple sclerosis then that to consider lumbar puncture. The plan was discussed with the patient. There is no further workup from a neurology perspective. Patient will sign off. Please reconsult if needed Brian Martinez M.D. Neuro-hospitalist Time with Patient: Greater than 30
--- NOTE | 2020-03-07 09:35 | DS ---
DISCHARGE SUMMARY DATE OF SERVICE: 03/06/2020 FINAL DIAGNOSES: 1. 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 2. History of migraine. 3. No evidence of AVM. 4. Sponge kidneys history. 5. History of nephrolithiasis. 6. History of anxiety, depression. DISCHARGE DISPOSITION: The patient will be discharged in a stable condition with guarded prognosis. Discharge cleared by Dr. Martinez, Neurology. HISTORY OF PRESENT ILLNESS: This 19-year-old woman with a past medical history of multiple medical problems was admitted with weakness of the right side of the face and as well as well as upper limb. Patient also had throbbing sensation in the left thigh also. The patient had extensive evaluation including angiography, MRI and 2D echo with Doppler with dye as recommended by Cardiology. There is no neurological abnormality or intracardiac shunt in the sepsis 2D echo. Dr. Torres recommended the patient to be discharged and patient improved significantly. On exam, vitals are stable. CARDIOVASCULAR: S1, S2. ABDOMEN: Soft. NERVOUS SYSTEM: No focal deficits. DISCHARGE ADVICE: 1. Diet is cardiac diet. 2. Activity limited until followup. 3. Follow up with Dr. Oj Dykes in 1 to 2 days. 4. Follow up with Dr. Chaudhry, Cardiology in 1 week follow. 5. Follow up with Dr. Mckeon in 1 week. 6. Neurology as an outpatient. FOLLOWUP MEDICATIONS: 1. Prozac 20 mg daily. 2. Ecotrin 81 mg daily. 3. Lipitor 10 mg p.o. daily. Once again, the patient will be discharged in stable condition, guarded prognosis. Please refer to Dr. Martinez's notes for further information. Recommend close followup with Neurology in the outpatient. MMODL / IJN: [id number] /
== END 2020-03-06 16:30 | disposition home or self-care (01) ==
LOC: EC 14:09 → 3SCARD 17:05
PROVIDERS: ADMIT Hospitalist; ATTEND Hospitalist
DX: R29.810 Facial weakness (principal); R53.1 Weakness; R20.0 Anesthesia of skin; R51 Headache; H53.143 Visual discomfort, bilateral; R47.81 Slurred speech; H53.8 Other visual disturbances; F41.9 Anxiety disorder, unspecified; F32.9 Major depressive disorder, single episode, unspecified; Q61.5 Medullary cystic kidney; Z80.8 Family history of malignant neoplasm of other organs or systems; Z82.79 Family history of other congenital malformations, deformations and chromosomal abnormalities; Z84.89 Family history of other specified conditions; Z87.442 Personal history of urinary calculi; G43.909 Migraine, unspecified, not intractable, without status migrainosus; Z79.82 Long term (current) use of aspirin; Z79.899 Other long term (current) drug therapy; Z88.2 Allergy status to sulfonamides; Z88.8 Allergy status to other drugs, medicaments and biological substances
CPT/HCPCS: 96361 ×2; 96372 ×3; 96360; 99285; 36415; 93005; 93306; 97161; 97112; 97166; 80061; 80053; 84443; 84484; 85025; 85610; 85730; 86140; 86431; 81001; 81025; 86038; 80306; 83036; 71046; 70496; 70450; 70498; 70546; 70553; 72156; G0378 ×3; U0003; J1644 ×3; A9585 ×2; Q9967